=== PATIENT | male | born 1995 | race Caucasian/White ===

== ENCOUNTER 2020-05-01 18:51 | Emergency (ER) | payer BC, OTHER ==
[~2020-05-01] VITALS: Ht 180.3 cm; Wt 81.6 kg
--- OUTSIDE RECORDS SUMMARY | 2020-05-01 18:57 | XMS REPORT | Continuity of Care Document ---
Author Organization Unknown Address Unknown Phone Unavailable Allergies There is no data. Medications There is no data. Problems Date Dx Coded Attending Type Code Diagnosis Diagnosed By 11/07/2018 Lonnie Houser V70. 0 Annual exam Procedures Code [place] [id number] Prev entive medicine, new patient, age 18-39 years 8 Results There is no data. Encounters ACCT No. Visit Date/Time Discharge Status Pt. Type Provider Facility Loc./Unit Complaint [id number] 11/07/2018 16:05:27 8 16:27:43 DIS Outpatient Lonnie Houser [facility]
[2020-05-01 19:10] VITALS: BP 138/62
[2020-05-01] MEDS ORDERED: TETANUS,DIPTH,PERTUSS P/F (BOOSTRIX) 0.5 ML VIAL IM ONE (19:15)
[2020-05-01] MEDS ORDERED: CEPHALEXIN 250 MG (KEFLEX) CAP PO ONE (19:15)
--- NOTE | 2020-05-01 19:17 | ED Upper Extremity ---
General Stated Complaint: L HAND NAIL IN THUMB Source: patient Exam Limitations: no limitations History of Present Illness Date Seen by Provider: May 01, 2020 Time Seen by Provider: 19:14 Initial Comments To ER with a nail in the left thumb. He was putting up some boards on his deck at home using a compressed air nail gun. It entered through one side of the thumb and mostly exited through the other side, the and with a bit of head on it is within the distal aspect of the thumb. He can feel it catching when he tried to remove it at home. Tetanus is not up-to-date. Onset: just prior to arrival Severity: moderate Pain/Injury Location: left thumb Modifying Factors: Worse With Movement Allergies and Home Medications Allergies Coded Allergies: No Known Drug Allergies (Unverified , 05/01/20) Patient Home Medication List Home Medication List Reviewed: Yes Review of Systems Constitutional: see HPI EENTM: see HPI Respiratory: no symptoms reported Cardiovascular: no symptoms reported Genitourinary: no symptoms reported Musculoskeletal: see HPI Skin: no symptoms reported Psychiatric/Neurological: No Symptoms Reported Past Pigdukm-Rifjiq-[id number] Hx Patient Social History Recent Foreign Travel: No Contact w/Someone Who Travel: No Physical Exam Vital Signs Capillary Refill : Height, Weight, BMI Height: '" Weight: lbs. oz. kg; BMI Method: General Appearance: WD/WN, no apparent distress Respiratory: no respiratory distress, no accessory muscle use Shoulder: normal inspection, non-tender Elbow/Forearm: normal inspection, non-tender Wrist: Yes normal inspection, Yes non-tender Hand: Right (there is about a 2 inch nail exiting out through the side of the thumb. The and with the head on it is buried within the soft tissue of the thumb.) Neurologic/Psychiatric: alert, normal mood/affect, oriented x 3 Skin: normal color, warm/dry Progress/Results/Core Measures Results/Orders My Orders Orders - GERMAINE NAM APRN Hand, Left, 3 Views (05/01/20 19:11) Cephalexin Capsule (Keflex Capsule) (05/01/20 19:15) Dipht,Pertuss(Acell),Tet Adult (Boostrix (05/01/20 19:15) Departure Communication (Admissions) Thumb was anesthetized with lidocaine parallel to the nail, this totaled 0.5 mL. Pliers were used to grasp the nail and pull Impression Primary Impression: Soft tissues foreign body Disposition: HOME, SELF-CARE Condition: Stable Departure-Patient Inst. Decision time for Depature: 19:16 Referrals: NO,LOCAL PHYSICIAN (PCP/Family) Primary Care Physician Patient Instructions: Foreign Body in Skin Add. Discharge Instructions: 1. Antibiotic as directed. Return to ER for any concerns 2. Tylenol and ibuprofen for pain control Scripts Cephalexin (Keflex) 500 Mg Capsule 500 MG PO TID, #6 CAP Prov: GERMAINE NAM APRN 05/01/20 GERMAINE NAM APRN May 01, 2020 19:17
[2020-05-01] MEDS ORDERED: CEPH-507 PO (19:31)
--- NOTE | 2020-05-01 20:02 | Diagnostic Imaging Report ---
INDICATION: Thumb lodged in nail. EXAMINATION: Three views of the left hand. FINDINGS: A nail is embedded in the soft tissues of the pad of the thumb. It does not appear to violate the cortex of the distal phalanx. IMPRESSION: The nail appears to be embedded in the soft tissues but does not appear to impact the bone. Dictated by: Dictated on workstation # [id number]
== END 2020-05-01 19:35 | disposition home or self-care (01) ==
LOC: ER 18:53
DX: S61.041A Puncture wound with foreign body of right thumb without damage to nail, initial encounter (principal); Z23 Encounter for immunization; W29.4XXA Contact with nail gun, initial encounter; Y92.009 Unspecified place in unspecified non-institutional (private) residence as the place of occurrence of the external cause
CPT/HCPCS: 73130; 90471; 90715

== ENCOUNTER → 2020-05-24 | Outpatient (CLI) | payer BC ==
[~2020-05-24] MED LIST: CEPH-507 PO
== END ==
LOC: LAB 16:27
PROVIDERS: ATTEND Obstetrics & Gynecology
DX: N46.11 Organic oligospermia (principal)